=== PATIENT | male | born 1955 | race Caucasian/White ===

== ENCOUNTER 2025-03-29 10:53 | Observation (INO) | payer MEDICARE, SELFPAY ==
[2025-03-29] VITALS (11 sets, daily range): BP systolic 114–145; BP diastolic 74–108; PULSE 67–83; RESP 16–18; TEMP 36.6–36.9; O2SAT 91–98; BMI 37.3
--- NOTE | 2025-03-29 11:14 | ED.RN ---
pt. has been repeatedly yelling out room that he needs door opened and water. Pt. is on the phone yelling that he needs at IV. Pt.and were then educated again that he has not seen a dr. yet and that as soon as he sees a dr. and orders are placed they will be carried out. Pt. given water and this RN kept door open d/t claustrophobia. This RN told on phone that I will not be speaking to her as long as she is yelling.
--- NOTE | 2025-03-29 12:01 | ED.RN ---
this rn answers call light - pt is on phone with a female individual, female on the phone is being rude to this nurse demanding the pt has water and the door has to be left open or they will call 911 and have pt taken to [facility]. this nurse explains to pt that that will not work - our ambulance companies will not transfer pts to [place]. female on the phone is cursing at this nurse. this nurse gives pt urinal like he had requested and gave pt more water like he requested. female on phone still making verbal threats about calling 911 and calling police. this nurse makes sure pt bed lockec, bed rails up, lowest pt and call light in reach. this nurse steps out of room- pt hit call light again
--- NOTE | 2025-03-29 12:40 | RAD_ITS ---
PROCEDURE: CHEST 1 VIEW (PORTABLE) 03/29/2025 REASON FOR EXAM: CHEST PAIN TECHNIQUE: Frontal view of the chest. COMPARISON: None provided. RAD/Chest 1 View (Portable) IMPRESSION: Marked right hemidiaphragm elevation is noted. Examination limited by AP portable technique, body habitus, and patient motion. No acute pneumonic process is seen. No pleural effusion or pneumothorax is evident. The cardiomediastinal silhouette is within the normal range. No acute osseous change is seen. Reading Location: [place] [id number]
--- NOTE | 2025-03-29 12:42 | EKG12_ITS ---
Test Reason : Blood Pressure : */* mmHG Vent. Rate : 65 BPM Atrial Rate : 65 BPM P-R Int : 196 ms QRS Dur : 88 ms QT Int : 400 ms P-R-T Axes : 54 -6 41 degrees QTcB Int : 416 ms Normal sinus rhythm Minimal voltage criteria for LVH, may be normal variant ( R in aVL ) Borderline ECG Confirmed by Gómez Gates ([id number]), news copy editor LOLY RAY ([id number]) on 03/30/2025 10:20:24 AM Referred By: Confirmed By: Gómez Gates
[2025-03-29] MEDS: 0.9% Normal Saline (1000mL) 1,000 ML 999 ML IV (12:56)
[2025-03-29 13:14] LABS: Hematocrit 41.8 % (40-54); Hemoglobin 14.3 g/dL (13.0-16.5); Immature Granulocytes Count 0.030 X10^3/uL (0.0-0.0); Mean Corp Hgb Conc 34.2 g/dL (32-36); Mean Corpuscular Volume 87.4 fL (80-94); Mean Platelet Vol. 8.9 fl (6.2-12.0); NRBC Flagged by Analyzer 0 % (0-5); Platelet Count 402 K/mm3 (150-450); RBC Distribution Width CV 14.0 % (11.6-14.6); RBC Distribution Width SD 45.0 fl (35.1-43.9); Red Blood Count 4.78 M/mm3 (4.6-6.2); White Blood Count 10.8 K/mm3 (4.4-11.0)
[2025-03-29 13:29] LABS: Mucous, Urine 0 SEEN /hpf (<or=2+)
[2025-03-29 13:34] LABS: Color, Urine Yellow (Yellow); Glucose, Dipstick Normal (Normal); Ketone-Dipstick Negative (Negative); Leukocyte Esterase-Dipstick Negative /ul (Negative); Nitrite-Dipstick Negative (Negative); Occult Blood-Urine Negative /ul (Negative); Protein-Dipstick 30 mg/dl (Negative); Specific Gravity, Urine 1.015 (1.002-1.030); Urine Bilirubin Dipstick Negative (Negative)
[2025-03-29 13:39] LABS: Troponin T High Sensitivity 19 ng/L (<=22)
[2025-03-29 13:42] LABS: AST(SGOT) 14 U/L (<=37); Alanine Aminotransfer ALT/SGPT 19 U/L (<=46); Albumin, Serum 4.2 g/dL (3.4-4.8); Alkaline Phosphatase 77 U/L (40-129); Anion Gap 14 (5-15); BUN 18 mg/dL (4-19); BUN/Creat Ratio 19.3 RATIO (10-20); Calcium,Total 9.8 mg/dL (7.6-11.0); Carbon Dioxide 26.0 mmol/L (21.0-32.0); Chloride 97 mmol/L (98-108); Estimated Creatinine Clearance 126.35 ml/min (50-250); Globulin 3.3 g/dL (2.2-4.2); Glucose 153 mg/dL (70-99); Potassium 4.0 mmol/L (3.3-5.1)
[2025-03-29 13:52] LABS: Barbiturate Urine NEGATIVE (< 200 ng/mL); Benzodiazepine Urine NEGATIVE (< 200 ng/mL); PCP Urine NEGATIVE (< 25 ng/mL); THC Urine PRESUMPTIVE POSITIVE (< 50 ng/mL)
[2025-03-29 14:40] LABS: Red Blood Cells-Urine 0-5 SEEN /hpf (0-5); Squamous Epithelial Cells - UA 0-5 SEEN /hpf (0-5)
--- NOTE | 2025-03-29 15:07 | PCM.HP.STD ---
[facility] - General General Date of Admission: 03/29/25 Date of Service: 03/29/25 Chief Complaint: Intractable back pain HPI Narrative XANDER BENAVIDES, is a 69 M who presented to [facility] ED on 03/29/2025 with intractable back pain. Patient has complex past medical history. Has never been hospitalized here before. Reviewed [facility] records. In short, patient has history of chronic low back pain with multiple prior surgeries. He has followed with pain management and was on Dilaudid for many years. He was transitioned to p.o. oxycodone at some point and attempts were made to wean him off of opiates. However, patient had no reported pain relief with any other pain medications or injections and was adamant about remaining on p.o. oxycodone. It appears he was recently discharged from a [facility] pain management doctor a few months ago. He then established with a new PCP about a month ago. ED physician spoke on phone with patient's PCP. PCP noted that she was in the process of weaning the patient off his oxycodone over the past 2 weeks. Patient had been on oxycodone 15 mg up to 4 times daily. He was weaned slowly with oxycodone 15 mg 3 times daily for 1 week, then 15 mg 3 times daily for 1 week, then 50 mg 1 time daily for 1 week. Apparently the patient was taking it more frequently and that last week and ran out early, and the PCP agreed to give him more tablets to wean more slowly. However, patient again took these more frequently than prescribed so PCP refused to provide him with more oxycodone. He noted worsening pain and what appeared to be opiate withdrawal symptoms, so he came to the ED here today for further evaluation. On arrival to the ED he was normotensive and stable on room air at rest. He was reporting opiate withdrawal symptoms and was given a dose of oxycodone 15 mg. ED physician discussed patient's case with his PCP as above and discussed at length with the patient and his on their options. They were concerned about pain control for him going forward and asked for more oxycodone for him at home. ED physician noted that she would only give muscle relaxers and steroids, so they asked for him to be admitted for pain management. Hospitalist was then contacted for admission. I saw the patient at bedside in the ED. participated in the conversation over the phone. was very adamant that the patient's pain was not being properly managed now and had not been managed properly for years by many physicians. Patient apparently has an office appointment with spine surgery in the [place] area next Saturday, and she and the patient are concerned about what to do for his pain over the next week. I discussed with them that I can admit him to the hospital and have our pain management physician see him here, and they were agreeable to this. On my exam, patient appeared fairly comfortable, though he had just received a dose of oxycodone. Denied any other acute concerns at this time. [facility] Home Medications ?Medication ?Instructions ?Recorded ?Last Taken ?Type albuterol sulfate 90 mcg/actuation 2 inh inhalation Q8H PRN shortness 03/29/25 03/28/25 17:00 History aerosol inhaler (Ventolin HFA) of breath or wheezing allopurinol 300 mg tablet 300 mg PO DAILY gout pain 03/29/25 03/28/25 History atenolol 50 mg tablet 50 mg PO BID 03/29/25 03/28/25 History atorvastatin 10 mg tablet 10 mg PO DAILY 03/29/25 03/28/25 History duloxetine 60 mg capsule,delayed 60 mg PO BID 03/29/25 03/28/25 History release ergocalciferol (vitamin D2) 1,250 2,500 mcg PO QWEEK 03/29/25 03/22/25 History mcg (50,000 unit) capsule hydrochlorothiazide 25 mg tablet 25 mg PO DAILY 03/29/25 03/28/25 History lorazepam 0.5 mg tablet 0.25 mg PO BID anxiety 03/29/25 03/28/25 History losartan 100 mg tablet 100 mg PO DAILY 03/29/25 03/28/25 History meloxicam 15 mg tablet 15 mg PO DAILY 03/29/25 03/28/25 History oxycodone 15 mg tablet 15 mg PO DAILY 03/29/25 Unknown History risperidone 1 mg tablet 1 mg PO QHS 03/29/25 03/28/25 History tamsulosin 0.4 mg capsule 0.4 mg PO DAILY 03/29/25 03/28/25 History testosterone 2 pump topical DAILY 03/29/25 03/28/25 History tirzepatide 7.5 mg/0.5 mL 7.5 mg subcut QWEEK 03/29/25 03/20/25 History subcutaneous pen injector (Scarlett) trospium 20 mg tablet 20 mg PO Q12H overactive bladder 03/29/25 03/28/25 History Allergy/AdvReac Type Severity Reaction Status Date / Time povidone-iodine (From Allergy Rash Verified 03/29/25 10:55 Betadine) Social History Smoking Status: Never smoker ROS Constitutional Constitutional: Reports weakness; Denies chills, fatigue or fever(s) Cardiovascular Cardiovascular: Denies chest pain Respiratory/Chest Respiratory/Chest: Denies shortness of breath at rest Gastrointestinal Gastrointestinal: Reports nausea; Denies abdominal pain, constipation, diarrhea or vomiting Musculoskeletal Musculoskeletal: Reports back pain Neurologic Neurologic: Denies dizziness, focal weakness, headache(s), numbness or tingling Vital Signs Vital Signs Vital Signs: 03/29/25 10:56 03/29/25 11:54 03/29/25 12:00 Temperature 98.0 F Temperature Source Oral Pulse Rate 71 81 81 Respiratory Rate 18 Respiratory Effort Blood Pressure 139/74 H 120/105 H 120/105 H Blood Pressure Mean 95 110 110 Pulse Ox 94 95 95 Oxygen Delivery Method Room Air Room Air 03/29/25 13:00 03/29/25 13:07 03/29/25 14:00 Temperature Temperature Source Pulse Rate 70 67 Respiratory Rate 16 Respiratory Effort Normal Non-Labored Blood Pressure 130/108 H 120/78 Blood Pressure Mean 115 92 Pulse Ox 94 Oxygen Delivery Method Room Air 03/29/25 14:18 03/29/25 15:00 Temperature 98.0 F Temperature Source Pulse Rate 67 83 Respiratory Rate 16 Respiratory Effort Blood Pressure 120/78 114/87 H Blood Pressure Mean 92 96 Pulse Ox 94 91 Oxygen Delivery Method Room Air Weight Weight: 146.4 kg Body Mass Index (BMI) 37.3 Physical Exam Const alert, oriented x3 and no apparent distress Constitutional Narrative: Elderly male, class II obesity, mildly fatigued appearing, otherwise sitting back fairly comfortably in bed, conversing normally, in no acute distress. General Appearance: cooperative and comfortable HEENT normocephalic, head/scalp atraumatic, hearing grossly normal bilaterally, nasal mucous membranes and turbinates normal and moist oral mucous membranes Eyes PERRL, EOMs intact bilaterally and conjunctivae normal Neck full ROM Chest inspection of chest normal Resp normal respiratory effort, normal air movement, no use of accessory muscles and clear to auscultation bilaterally Cardio regular rate, regular rhythm, no murmurs and peripheral pulses 2+ throughout GI normal to inspection, nondistended, normoactive bowel sounds, soft to palpation, non-tender and non-distended Back/Spine Back/Spine Narrative: Mild tenderness to palpation in low back diffusely. Decreased range of motion noted. Extremity normal to inspection and no pedal edema Skin no rashes or lesions noted Psych mental status grossly normal Results Lab / Micro Data 03/29/25 12:37 03/29/25 12:37 Labs: Laboratory Results - last 24 hr 03/29/25 12:37: WBC 10.8, RBC 4.78, Hgb 14.3, Hct 41.8, MCV 87.4, MCH 29.9, MCHC 34.2, RDW Std Deviation 45.0 H, RDW Coeff of Judie 14.0, Plt Count 402, MPV 8.9, Immature Gran % (Auto) 0.300, Neut % (Auto) 67.6, Lymph % (Auto) 24.3, [place] % (Auto) 4.4, Eos % (Auto) 2.8, Baso % (Auto) 0.6, Absolute Neuts (auto) 7.3, Absolute Lymphs (auto) 2.63, Nucleated RBC % 0, Sodium 137, Potassium 4.0, Chloride 97 L, Carbon Dioxide 26.0, Anion Gap 14, BUN 18, Creatinine 0.91, Estim Creat Clear Calc 126.35, Est GFR (MDRD) Non-Af 92, BUN/Creatinine Ratio 19.3, Glucose 153 H, Calcium 9.8, Total Bilirubin 0.38, AST 14, ALT 19, Alkaline Phosphatase 77, Troponin T High Sens 19, Total Protein 7.4, Albumin 4.2, Globulin 3.3, Albumin/Globulin Ratio 1.3 03/29/25 13:24: Urine Color Yellow, Urine Clarity Clear, Urine pH 6.0, Ur Specific [place] 1.015, Urine Protein 30 H, Urine Glucose (UA) Normal, Urine Ketones Negative, Urine Occult Blood Negative, Urine Nitrite Negative, Urine Bilirubin Negative, Urine Urobilinogen Normal, Ur Leukocyte Esterase Negative, Urine RBC 0-5 SEEN, Urine WBC 0-5 SEEN, Ur Squamous Epith Cells 0-5 SEEN, Urine Bacteria 0 SEEN, Urine Mucus 0 SEEN, Urine Opiates Screen NEGATIVE, U Buprenorphine Qual NEGATIVE, Ur Oxycodone Screen PRESUMPTIVE POSITIVE, Urine Methadone Screen NEGATIVE, Urine Fentanyl Screen NEGATIVE, Ur Barbiturates Screen NEGATIVE, Ur Phencyclidine Scrn NEGATIVE, Ur Amphetamines Screen NEGATIVE, U Benzodiazepines Scrn NEGATIVE, Urine Cocaine Screen NEGATIVE, U Cannabinoids Screen PRESUMPTIVE POSITIVE Imaging Radiology Impression Chest X-Ray 03/29/25 12:40 IMPRESSION: Marked right hemidiaphragm elevation is noted. Examination limited by AP portable technique, body habitus, and patient motion. No acute pneumonic process is seen. No pleural effusion or pneumothorax is evident. The cardiomediastinal silhouette is within the normal range. No acute osseous change is seen. Reading Location: [place] [address] Assessment & Plan Assessment/Plan (1) Chronic back pain: (2) Opioid dependence: (3) Intractable low back pain: PLAN: Plan Patient is a 69-year-old male who presented to [facility] ED on 03/29/2025 with intractable low back pain. 1. Intractable low back pain in setting of chronic low back pain with opioid dependence ? Admit under observation status to [facility]. Pain management consulted. PT/OT/case management consulted. Complex history, see HPI for further details. Reviewed most recent office note from Dr. Jeffers with [facility] interventional pain management from 11/12. Patient signed a pain contract that day, and plan at that time was to continue OxyContin 10 mg every 12 hours and oxycodone IR 15 mg every 6 hours as needed. Was apparently dismissed by this provider for an unclear reason. He then established with a new PCP who discontinued his OxyContin and attempted to taper him off the oxycodone. Patient now reports worsening pain control as well as symptoms consistent with opiate withdrawal. Will initiate oxycodone 10 mg every 6 hours as needed for now. Appreciate pain management recommendations. Chronic medical conditions: ? Class II obesity: BMI 37 on admit. Complicates hospital course and care. ? Anxiety/depression: Continue home duloxetine, low-dose Ativan twice daily as needed and Risperdal at night. ? Hypertension/hyperlipidemia: Mildly hypertensive to the 140s systolic on admit. Continue home atenolol, hydrochlorothiazide, losartan, and atorvastatin. ? BPH with obstructive symptoms: Continue home Flomax. ? Overactive bladder: Continue home trospium. ? History of gout: Continue home allopurinol. DVT prophylaxis: Lovenox CODE STATUS: Full code, verified Expected disposition: Home, TBD Total clinical time spent by myself addressing the patient's medical issues, reviewing all the data, and collaborating with patient's care team: 85 minutes. Charges/Coding Visit Charges Inpatient E&M: 81127 Init Hosp L3
--- NOTE | 2025-03-29 15:25 | EX.ED.DYSGE1 ---
HPI History of Present Illness Chief Complaint: General Illness Informant: patient Narrative Narrative: Patient is a 69-year-old male with history of neuropathy, chronic pain, mitral valve prolapse, hypertension and debility presenting with concern for opioid withdrawl. Patient states that he recently lost his pain management doctor and had to switch primary care doctors. His current primary care doctor, Dr. Brady, has been weaning him off of his oxycodone and most recently he was prescribed his oxycodone 15 mg IR once a day for 10 days on 03/23. Patient states he only had 1/2 pill left and took that yesterday. He is presenting with withdrawal-like symptoms including nausea, chills, freezing and shaking. He is concerned that is affecting his heart and states that he has had variable heart rates because of the severity of the withdrawal symptoms. He denies any new injury or trauma. He states he has appointment to see a spinal surgeon, Dr. Currie, this coming Saturday. He has appointment to see a new pain management doctor through [facility], Dr. Vick, in May 18. Does not know what else to do so came to the emergency room. Denies any acute numbness or tingling. No acute symptoms at this time except for of the shaking chills and nausea. [facility] Home Medications ?Medication ?Instructions ?Recorded ?Last Taken ?Type allopurinol 300 mg tablet 300 mg PO DAILY gout pain 03/29/25 03/28/25 History atenolol 50 mg tablet 50 mg PO BID 03/29/25 03/28/25 History atorvastatin 10 mg tablet 10 mg PO DAILY 03/29/25 03/28/25 History duloxetine 60 mg capsule,delayed 60 mg PO BID 03/29/25 03/28/25 History release ergocalciferol (vitamin D2) 1,250 2,500 mcg PO QWEEK 03/29/25 03/22/25 History mcg (50,000 unit) capsule hydrochlorothiazide 25 mg tablet 25 mg PO DAILY 03/29/25 03/28/25 History lorazepam 0.5 mg tablet 0.25 mg PO BID anxiety 03/29/25 03/28/25 History losartan 100 mg tablet 100 mg PO DAILY 03/29/25 03/28/25 History meloxicam 15 mg tablet 15 mg PO DAILY 03/29/25 03/28/25 History oxycodone 15 mg tablet 15 mg PO DAILY 03/29/25 Unknown History risperidone 1 mg tablet 1 mg PO QHS 03/29/25 03/28/25 History tamsulosin 0.4 mg capsule 0.4 mg PO DAILY 03/29/25 03/28/25 History testosterone 2 pump topical DAILY 03/29/25 03/28/25 History tirzepatide 7.5 mg/0.5 mL 7.5 mg subcut QWEEK 03/29/25 03/20/25 History subcutaneous pen injector (Mounpraveenaro) trospium 20 mg tablet 20 mg PO Q12H overactive bladder 03/29/25 03/28/25 History Allergy/AdvReac Type Severity Reaction Status Date / Time povidone-iodine (From Allergy Rash Verified 03/29/25 10:55 Betadine) Social History Smoking Status: Never smoker ROS ROS ED Constitutional Constitutional ED: Reports chills and sweats; Denies fever(s) Eyes Eyes: Denies change in vision Cardiovascular Cardiovascular: Reports palpitations; Denies chest pain Respiratory/Chest Respiratory/Chest: Denies cough or dyspnea Gastrointestinal Gastrointestinal: Reports nausea; Denies abdominal pain or vomiting Musculoskeletal Musculoskeletal: Reports arthralgias and back pain Integumentary Denies rash Neurologic Neurologic: Reports paresthesias RLE and LLE; Denies weakness Psychiatric Psychiatric: Reports anxiety Hematologic/Lymphatic Hematologic/Lymphatic: Denies easy bleeding or easy bruising EXAM Physical Exam Const Vital Signs: 03/29/25 10:56 03/29/25 11:54 03/29/25 12:00 Temperature 98.0 F Temperature Source Oral Pulse Rate 71 81 81 Respiratory Rate 18 Respiratory Effort Blood Pressure 139/74 H 120/105 H 120/105 H Blood Pressure Mean 95 110 110 Pulse Ox 94 95 95 Oxygen Delivery Method Room Air Room Air 03/29/25 13:00 03/29/25 13:07 03/29/25 14:00 Temperature Temperature Source Pulse Rate 70 67 Respiratory Rate 16 Respiratory Effort Normal Non-Labored Blood Pressure 130/108 H 120/78 Blood Pressure Mean 115 92 Pulse Ox 94 Oxygen Delivery Method Room Air 03/29/25 14:18 03/29/25 15:00 Temperature 98.0 F Temperature Source Pulse Rate 67 83 Respiratory Rate 16 Respiratory Effort Blood Pressure 120/78 114/87 H Blood Pressure Mean 92 96 Pulse Ox 94 91 Oxygen Delivery Method Room Air Positive well nourished, well developed and obese General Appearance ED: well developed and NAD Nutritional Appearance: obese HEENT Reports moist mucous membranes Eyes PERRL Neck supple Chest Wall inspection of chest normal and palpation of chest normal Resp normal respiratory effort Cardio regular rate and regular rhythm GI normal to inspection, nondistended, normoactive bowel sounds and non-tender Extremity normal to inspection Neuro oriented x3 Sensorium / Orientation: alert Motor Exam: general weakness Psych Attitude: agitated Skin no rashes or lesions noted MDM MDM MDM Narrative Medical decision making narrative: Patient is evaluated for opioid withdrawal symptoms and reports variable heart rate at home associated with his opioid withdrawal symptoms. His PCP has been weaning him off of oxycodone however he ran out prematurely. Patient has an extensive history of opioid dependency and is previously been on Dilaudid as well as methadone. He has left multiple pain management practices. He has also been dismissed from multiple PCP practices. Patient initially given 1 dose of his oxycodone 15 mg in the ER for his acute withdrawals I do see that he has a regular fill history on his [facility] report and tell I can get more secondary information. I spoke with his primary care doctor who states that the patient and his have a history of badgering in the office for pain medication and they were discharged from the last practice for this behavior. His current practice is having difficulty with them as well. She confirms that she is trying to wean the patient off of his oxycodone and did recommend detox if he is having too much difficulty with his withdrawal symptoms. Initially spoke with the patient who is initially interested in admission for detox. Counseled that this would get him started on Subutex however this would not help with pain management. Spoke with hospitalist who had extensive conversation with the patient as well. At this time is unlike the patient is not interested in detoxing as he really does not want to stop taking oxycodone and is really here for pain management. Patient will be admitted for pain management standpoint/intractable pain and pain management will see him on consult. Medically patient does not have any signs of infection with no leukocytosis and does not have any arrhythmia in the emergency room. Lab Data Attestation: I reviewed the patient's lab results. Labs: Laboratory Results - last 24 hr 09/08/25 09/08/25 12:37 13:24 WBC 10.8 RBC 4.78 Hgb 14.3 Hct 41.8 MCV 87.4 MCH 29.9 MCHC 34.2 RDW Std Deviation 45.0 H RDW Coeff of Judie 14.0 Plt Count 402 MPV 8.9 Immature Gran % (Auto) 0.300 Neut % (Auto) 67.6 Lymph % (Auto) 24.3 [place] % (Auto) 4.4 Eos % (Auto) 2.8 Baso % (Auto) 0.6 Absolute Neuts (auto) 7.3 Absolute Lymphs (auto) 2.63 Nucleated RBC % 0 Sodium 137 Potassium 4.0 Chloride 97 L Carbon Dioxide 26.0 Anion Gap 14 BUN 18 Creatinine 0.91 Estim Creat Clear Calc 126.35 Est GFR (MDRD) Non-Af 92 BUN/Creatinine Ratio 19.3 Glucose 153 H Calcium 9.8 Total Bilirubin 0.38 AST 14 ALT 19 Alkaline Phosphatase 77 Troponin T High Sens 19 Total Protein 7.4 Albumin 4.2 Globulin 3.3 Albumin/Globulin Ratio 1.3 Urine Color Yellow Urine Clarity Clear Urine pH 6.0 Ur Specific [place] 1.015 Urine Protein 30 H Urine Glucose (UA) Normal Urine Ketones Negative Urine Occult Blood Negative Urine Nitrite Negative Urine Bilirubin Negative Urine Urobilinogen Normal Ur Leukocyte Esterase Negative Urine RBC 0-5 SEEN Urine WBC 0-5 SEEN Ur Squamous Epith Cells 0-5 SEEN Urine Bacteria 0 SEEN Urine Mucus 0 SEEN Urine Opiates Screen NEGATIVE U Buprenorphine Qual NEGATIVE Ur Oxycodone Screen PRESUMPTIVE POSITIVE Urine Methadone Screen NEGATIVE Urine Fentanyl Screen NEGATIVE Ur Barbiturates Screen NEGATIVE Ur Phencyclidine Scrn NEGATIVE Ur Amphetamines Screen NEGATIVE U Benzodiazepines Scrn NEGATIVE Urine Cocaine Screen NEGATIVE U Cannabinoids Screen PRESUMPTIVE POSITIVE Radiography Diagnostic Testing: Clinical Impression(s) from Imaging Studies Chest X-Ray 03/29/25 12:40 IMPRESSION: Marked right hemidiaphragm elevation is noted. Examination limited by AP portable technique, body habitus, and patient motion. No acute pneumonic process is seen. No pleural effusion or pneumothorax is evident. The cardiomediastinal silhouette is within the normal range. No acute osseous change is seen. Reading Location: [facility] Rhythm Strip Rhythm Strip: Sinus Rhythm Rate: 65 Ectopy: None EKG Initial EKG: Attestation: I personally reviewed and interpreted this EKG as follows: Interpretation: Sinus Rhythm Comments: Normal sinus rhythm rate of 65 beats per minutes Normal axis Normal intervals Normal ST segments Minimal voltage criteria for LVH Management Discussion w/another healthcare provider: Hospitalist and PCP Discharge Plan Triage Chief Complaint: General Illness ED Provider: Melvina Mar Dx/Rx/DC Orders Clinical Impression: Chronic back pain, Opioid dependence Prescriptions: No Action atorvastatin 10 mg tablet 10 mg PO DAILY meloxicam 15 mg tablet 15 mg PO DAILY oxycodone 15 mg tablet 15 mg PO DAILY Rx Instructions: pt states isn't taking because pcp isn't giving him any more lorazepam 0.5 mg tablet 0.25 mg PO BID Patient Comments: rx instructions are 1/2t bid, pt states he takes 1am and 2pm tamsulosin 0.4 mg capsule 0.4 mg PO DAILY hydrochlorothiazide 25 mg tablet 25 mg PO DAILY ergocalciferol (vitamin D2) 1,250 mcg (50,000 unit) capsule 2,500 mcg PO QWEEK losartan 100 mg tablet 100 mg PO DAILY risperidone 1 mg tablet 1 mg PO QHS atenolol 50 mg tablet 50 mg PO BID duloxetine 60 mg capsule,delayed release(DR/EC) 60 mg PO BID testosterone 20.25 mg/1.25 gram (1.62 %) gel in metered-dose pump 2 pump topical DAILY Mounjaro 7.5 mg/0.5 mL pen injector 7.5 mg subcut QWEEK trospium 20 mg tablet 20 mg PO Q12H allopurinol 300 mg tablet 300 mg PO DAILY Primary Care Provider: Vivian Brady Referrals: Vivian Brady DO [Primary Care Provider] - Print Language: Telugu Disposition Disposition: Acute Care Hospital [facility]
[2025-03-29 15:32] LABS: Troponin T High Sens 2 HR 12 ng/L (<=22)
[2025-03-29 15:36] LABS: Alcohol, Blood (Medical)-Serum < 10.1 mg/dL (<=10.0)
--- NOTE | 2025-03-29 16:17 | ED.RN ---
pt calls department yelling at this nurse. asking why he is not up stairs yet. and why he has not been able to eat yet today. was talking so fast and much did not allow this nurse to respond. she then hung up.
--- NOTE | 2025-03-29 16:30 | ED.RN ---
Pt heard yelling help, this RN went into room to assess pt needs. Pt states he dropped his call light. This RN secured call light to bed rail. This RN asked if pt had any other needs at this time. Pt states I'm too tall for this bed, they have to move me! I was told I'm being admitted! This RN states she's not the pt's nurse but would check the status of his admission. Pt educated on the need to wait for his inpatient room to be cleaned before he can be moved upstairs and that they are currently cleaning the room. Pt states well if they're not going to do anything I should just leave! This RN again reiterates that the hospitalist has seen him and orders are in for inpatient treatment that we are just waiting for the room to be done being cleaned. This RN offered to reposition pt for comfort and assisted pt up in the bed. Pt denies further needs at this time.
--- NOTE | 2025-03-29 16:56 | ED.RN ---
Late entry....1235 Pt is yelling at this nurse. Pts is on the phone. had called prior to this nurse going to the room to tell me to tell the physician that pt needs pain meds and IV fluids. I explained to the that the physician was in with a trauma and will be in the room as soon as she can. stated that the dr had also told her that. Pt continues to ask for pain meds. This nurse was starting IV and getting blood work. The again repeated that he needs his pain meds.
--- NOTE | 2025-03-29 17:05 | ED.RN ---
Pts called again and wanted to speak to Dr Morales. was made aware that everyone knows that he is to be given pain medication directed. wanted to know what the orders were for. I told her per Dr Pelletier orders he will be given oxycodone 10mg q6hr prn and meloxicam daily. She said thank you and hung up.
--- NOTE | 2025-03-29 17:16 | CM.ED ---
Social Work SW entered patients room, introduced self and explained role in the hospital. SW explained that the visit was just for a check to see if there was anything that SW could help with as he has been heard yelling during his admission. Patient stated that he was in pain and that he was withdrawing from multiple years of using pain medications. Patient offered emotional support, patient stated he just wanted pain medications and more water. Patient given more water after checking with nurse. No further needs identified at this time. Beth Aguilar, JUNIOR ESTIMATOR, ENVIRONMENTAL ENGINEER SCIENTIST
[2025-03-29 18:12] LABS: Troponin T High Sens 4 HR 16 ng/L (<=22)
--- NOTE | 2025-03-29 20:44 | PCM.HOSP.N ---
Hospitalist Note Pt found using home albuterol MDI in home; nrsg added medication to reconciled home list. Continued albuterol INH PRN as directed per home orders recorded.
[2025-03-29] MEDS: MENTHOL 226.8 GM JAR 1 APPLIC TOPICAL (23:01)
[2025-03-30 03:54] VITALS: BP 142/68; PULSE 65; RESP 18; TEMP 36.5; O2SAT 92
[2025-03-30 08:30] VITALS: BP 111/62; PULSE 67; RESP 18; TEMP 37; O2SAT 91
[2025-03-30] MEDS: MENTHOL 226.8 GM JAR 1 APPLIC TOPICAL ×2 (08:33→12:57)
--- NOTE | 2025-03-30 10:39 | PN.HOSP_ITS ---
Reason for Visit Chief Complaint: Intractable back pain Objective Data Objective Data Vital Signs: Vital Signs Temp Pulse Resp BP Pulse Ox O2 Del Method 98.6 F 67 18 111/62 91 Room Air 03/30/25 08:30 03/30/25 08:30 03/30/25 08:30 03/30/25 08:30 03/30/25 08:30 03/30/25 08:30 Oxygen Delivery Method Room Air Weight: 322 lb 12.108 oz Body Mass Index (BMI) 37.3 Intake & Output: Intake and Output for Last 24 Hours 03/28/25 03/29/25 03/30/25 23:59 23:59 23:59 Intake Total 1400 / 2400 1400 / 1400 Output Total 800 / 800 Balance 1400 / 1800 600 / 600 Lab / Micro Data 03/29/25 12:37 03/29/25 12:37 Labs: Laboratory Results - last 24 hr 03/29/25 12:37: WBC 10.8, RBC 4.78, Hgb 14.3, Hct 41.8, MCV 87.4, MCH 29.9, MCHC 34.2, RDW Std Deviation 45.0 H, RDW Coeff of Judie 14.0, Plt Count 402, MPV 8.9, Immature Gran % (Auto) 0.300, Neut % (Auto) 67.6, Lymph % (Auto) 24.3, Bay % (Auto) 4.4, Eos % (Auto) 2.8, Baso % (Auto) 0.6, Absolute Neuts (auto) 7.3, Absolute Lymphs (auto) 2.63, Nucleated RBC % 0, Sodium 137, Potassium 4.0, C hloride 97 L, Carbon Dioxide 26.0, Anion Gap 14, BUN 18, Creatinine 0.91, Estim Creat Clear Calc 126.35, Est GFR (MDRD) Non-Af 92, BUN/Creatinine Ratio 19.3, G lucose 153 H, Calcium 9.8, Total Bilirubin 0.38, AST 14, ALT 19, Alkaline Phosphatase 77, Troponin T High Sens 19, Total Protein 7.4, Albumin 4.2, Globulin 3.3, Albumin/Globulin Ratio 1.3 03/29/25 13:24: Urine Color Yellow, Urine Clarity Clear, Urine pH 6.0, Ur Specific [place] 1.015, Urine Protein 30 H, Urine Glucose (UA) Normal, Urine Ketones Negative, Urine Occult Blood Negative, Urine Nitrite Negative, Urine Bilirubin Negative, Urine Urobilinogen Normal, Ur Leukocyte Esterase Negative, Urine RBC 0-5 SEEN, Urine WBC 0-5 SEEN, Ur Squamous Epith Cells 0-5 SEEN, Urine Bacteria 0 SEEN, Urine Mucus 0 SEEN, Urine Opiates Screen NEGATIVE, U Buprenorphine Qual NEGATIVE, Ur Oxycodone Screen PRESUMPTIVE POSITIVE, Urine Methadone Screen NEGATIVE, Urine Fentanyl Screen NEGATIVE, Ur Barbiturates Screen NEGATIVE, Ur Phencyclidine Scrn NEGATIVE, Ur Amphetamines Screen NEGATIVE, U Benzodiazepines Scrn NEGATIVE, Urine Cocaine Screen NEGATIVE, U Cannabinoids Screen PRESUMPTIVE POSITIVE 03/29/25 14:13: Ethyl Alcohol < 10.1 03/29/25 14:37: Troponin T Hi Sens 2 Hr 12 03/29/25 16:55: Troponin T Hi Sens 4Hr 16 Radiography Diagnostic Testing: Radiology Impression Chest X-Ray 03/29/25 12:40 IMPRESSION: Marked right hemidiaphragm elevation is noted. Examination limited by AP portable technique, body habitus, and patient motion. No acute pneumonic process is seen. No pleural effusion or pneumothorax is evident. The cardiomediastinal silhouette is within the normal range. No acute osseous change is seen. Reading Location: [place] [address] Rhythm Strip Rhythm Strip: Sinus Rhythm Rate: 65 Ectopy: None Assessment & Plan Assessment/Plan (1) Chronic back pain: (2) Opioid dependence: (3) Intractable low back pain: PLAN: Plan Patient is a 69-year-old male who presented to [facility] ED on 03/29/2025 with intractable low back pain. 1. Intractable low back pain in setting of chronic low back pain with opioid dependence after recent tapering of oxycodone IR ? Admit under observation status to [facility]. Pain management consulted. PT/OT/case management consulted. Complex history. From H&P's it seems patient has been on OxyContin 10 mg every 12 hourly and oxycodone IR 50 mg every 6 hours as needed as per recent pain contract signed outpatient. Patient has been dismissed by multiple providers. He recently established with new PCP who attempted to taper off OxyContin IR and discontinued OxyContin. Pain management consulted. Chronic medical conditions: ? Class II obesity: BMI 37 on admit. Complicates hospital course and care. ? Anxiety/depression: Continue home duloxetine, low-dose Ativan twice daily as needed and Risperdal at night. ? Hypertension/hyperlipidemia: Mildly hypertensive to the 140s systolic on admit. Continue home atenolol, hydrochlorothiazide, losartan, and atorvastatin. ? BPH with obstructive symptoms: Continue home Flomax. ? Overactive bladder: Continue home trospium. ? History of gout: Continue home allopurinol. DVT prophylaxis: Lovenox CODE STATUS: Full code, verified Expected disposition: Home, TBD Charges/Coding Visit Charges Inpatient E&M: 09428 Subs Hosp L2
[2025-03-30 11:12] VITALS: O2SAT 91
--- NOTE | 2025-03-30 14:19 | CASEMGMT ---
MCGRAW Met with patient to complete MCGRAW form. MCGRAW form and its content were verbally explained and patient's questions were answered to the best of my ability.? Patient voiced understanding and signed MCGRAW form.? Patient provided a copy of signed MCGRAW form and original placed in patient's chart.? Patient had no further questions. Melly Ren, Discharge Planning Asst
--- NOTE | 2025-03-30 14:37 | CASEMGMT ---
Addendum entered by Maya Carrera 03/30/25 16:02: MERVAT PRIETO into pt room, pt at bedside as well as nurse and DIRECTIONAL DRILL OPERATOR. Pt states he and his have chosen 1. [facility] 2. [facility] 3. [facility]. DC certified medical technician assistant to send referral. Original Note: Spoke with therapy who state pt is unsafe to return home but pt has an appt tomorrow with spine surgery that he does not want to miss. Reviewed therapy notes. MERVAT PRIETO into pt room, pt lying in bed in no distress. Discussed with pt how he felt he did with therapy, pt states it did not go well. Discussed recommendations and pt states he is open to SNF. Pt aware that this is a facility for therapy that he would stay at. Pt states he can do so as his changed his spine surgery appt to Saturday. Pt aware that dc certified medical technician assistant will provide a list and requested he give his top 3 preferences. Pt verbalized understanding and denies further needs at this time.
[2025-03-30 14:55] VITALS: BP 103/65; PULSE 81; RESP 18; TEMP 36.9; O2SAT 91
--- NOTE | 2025-03-30 15:06 | CASEMGMT ---
Discharge Planning A list of?SNF providers including quality and resource use data and consistent with the patient's preferred geographic region, medical needs, and insurance network was created in [facility] Guide.? This list was provided to the patient. Melly Ren, Discharge Planning Asst.
--- NOTE | 2025-03-30 16:15 | CASEMGMT ---
Discharge Planning Referral sent to [facility]. Melly Ren DC Planning Asst.
[2025-03-30 19:47] VITALS: BP 117/63; PULSE 74; RESP 18; TEMP 36.8; O2SAT 93
--- NOTE | 2025-03-31 00:18 | NURSING ---
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 They were unhappy about it and I told them I would pass it along in the am so the hospitalist can address it.
[2025-03-31 02:38] VITALS: BP 130/60; PULSE 65; RESP 18; TEMP 36.4; O2SAT 92
--- NOTE | 2025-03-31 08:00 | CASEMGMT ---
[facility] has accepted and will submit for precert. SW updated. Melly Ren, Discharge Planning Asst
[2025-03-31 08:45] VITALS: BP 123/80; PULSE 68; RESP 18; TEMP 36.9; O2SAT 95
--- NOTE | 2025-03-31 09:14 | TREXTCAR_ITS ---
Diet Diet Order/Speech Therapy: INPATIENT Hospital Diet / Speech Therapy Order(s) 03/29/25 17:16 Diet: Cardiac - Heart Healthy Food consistency:: Regular Liquid Consistency:: Regular/Thin Routine Orders/Code Status Suppository Type: Dulcolax 10mg Suppository Frequency: Daily PRN DC O2, CPAP, BIPAP needs Home O2 Discharge instructions: No Therapies Extremity Affected:: Bilateral Lower Physical Therapy: Eval and Treat Occupational Therapy: Eval and Treat Speech Therapy: Eval and Treat Problem/Diagnosis (1) Chronic back pain: Status: Chronic Code(s): M54.9 - Dorsalgia, unspecified; G89.29 - Other chronic pain (2) Opioid dependence: Status: Acute Code(s): F11.20 - Opioid dependence, uncomplicated (3) Intractable low back pain: Status: Acute Code(s): M54.59 - Other low back pain Plan Patient is a 69-year-old male who presented to [facility] ED on 03/29/2025 with intractable low back pain. 1. Intractable low back pain in setting of chronic low back pain with opioid dependence after recent tapering of oxycodone IR ? Admit under observation status to [facility]. Pain management consulted. PT/OT/case management consulted. Complex history. From H&P's it seems patient has been on OxyContin 10 mg every 12 hourly and oxycodone IR 50 mg every 6 hours as needed as per recent pain contract signed outpatient. Patient has been dismissed by multiple providers. He recently established with new PCP who attempted to taper off OxyContin IR and discontinued OxyContin. Pain management consulted. Chronic medical conditions: ? Class II obesity: BMI 37 on admit. Complicates hospital course and care. ? Anxiety/depression: Continue home duloxetine, low-dose Ativan twice daily as needed and Risperdal at night. ? Hypertension/hyperlipidemia: Mildly hypertensive to the 140s systolic on admit. Continue home atenolol, hydrochlorothiazide, losartan, and atorvastatin. ? BPH with obstructive symptoms: Continue home Flomax. ? Overactive bladder: Continue home trospium. ? History of gout: Continue home allopurinol. DVT prophylaxis: Lovenox CODE STATUS: Full code, verified Expected disposition: Home, TBD Allergies/Procedures Done in Hospital Allergies povidone-iodine (From Betadine) Allergy (Verified 03/29/25 10:55) Rash Type of Care/Length of Stay Estimated LOS: Convalescent Care Less Than 30 days Type of Care Needed: Skilled Rehab Potential: Good Prognosis: Good Additional Orders/Day of Discharge Day of Discharge: 03/31/25 Dietary and Speech Recommendations Dietitian Recommendations/Changes: Will continue liberalized regular diet with consistency/texture as per IT CONSULTING MANAGER. Will continue 120mL ensure plus HP 4 times per day w/ medpass. Monitor blood glucose level and restrict dietary carbohydrate as needed. Trend weights closely and adjust ONS as needed to optimize nutrition and prevent energy/pro depletion. Discharge Plan Admission Admit Date/Time: 03/29/25 15:07 Primary Reason for Your Visit: Intractable low back pain Attending Provider: Jorge Amador Primary Care Provider: Vivian Brady Consulting Providers: Abimbola Pascual; Orville Birmingham Discharge Orders/Prescriptions Prescriptions: New oxycodone 5 mg Tablet 5 mg PO Q6H PRN PRN (Reason: Pain Score 6-10) 3 Days Qty: 7 0RF pantoprazole 40 mg Tablet,Delayed Release (Dr/Ec) 40 mg PO DAILY 30 Days Qty: 30 0RF Continued atorvastatin 10 mg tablet 10 mg PO DAILY meloxicam 15 mg tablet 15 mg PO DAILY lorazepam 0.5 mg tablet 0.25 mg PO BID Patient Comments: rx instructions are 1/2t bid, pt states he takes 1am and 2pm tamsulosin 0.4 mg capsule 0.4 mg PO DAILY hydrochlorothiazide 25 mg tablet 25 mg PO DAILY ergocalciferol (vitamin D2) 1,250 mcg (50,000 unit) capsule 2,500 mcg PO QWEEK losartan 100 mg tablet 100 mg PO DAILY risperidone 1 mg tablet 1 mg PO QHS atenolol 50 mg tablet 50 mg PO BID duloxetine 60 mg capsule,delayed release(DR/EC) 60 mg PO BID testosterone 20.25 mg/1.25 gram (1.62 %) gel in metered-dose pump 2 pump topical DAILY Mounjaro 7.5 mg/0.5 mL pen injector 7.5 mg subcut QWEEK trospium 20 mg tablet 20 mg PO Q12H allopurinol 300 mg tablet 300 mg PO DAILY albuterol sulfate [Ventolin HFA] 90 mcg/actuation HFA aerosol inhaler 2 inh inhalation Q8H PRN (Reason: shortness of breath or wheezing) Discontinued oxycodone 15 mg tablet 15 mg PO DAILY Rx Instructions: pt states isn't taking because pcp isn't giving him any more Referrals / Follow Up: Abimbola Pascual MD [Med Staff - Active Staff] - Within 1 Week Vivian Brady DO [Primary Care Provider] - Within 2 Weeks Disposition Disposition (needs filled in before D/C Order can be placed): Nursing Home Facility
--- NOTE | 2025-03-31 09:15 | CASEMGMT ---
[facility] obtained auth to admit. MERVAT CM updated. Melly Ren DC Planning Asst.
--- NOTE | 2025-03-31 09:19 | DS.PCM_ITS ---
Providers Date of Admission: 03/29/25 Date of Discharge: 03/31/25 Primary Care Physician: Dr. Vivian Brady, Consultations 03/29/25 17:16 Consult: Pain Management Routine Consulting Provider: Abimbola Pascual Reason for Consult: intractable back pain EMERGENT Consult: No MD Notified: Yes Date Notified: 03/29/25 Time Notified: 17:28 Method of Notification: Answering Service Reason For Visit: withdraw, INTRACTABLE BACK PAIN Diagnosis Discharge Diagnosis (1) Chronic back pain: Status: Chronic Code(s): M54.9 - Dorsalgia, unspecified; G89.29 - Other chronic pain (2) Opioid dependence: Status: Acute Code(s): F11.20 - Opioid dependence, uncomplicated (3) Intractable low back pain: Status: Acute Code(s): M54.59 - Other low back pain Plan Patient is a 69-year-old male who presented to [facility] ED on 03/29/2025 with intractable low back pain. 1. Intractable low back pain in setting of chronic low back pain with opioid dependence after recent tapering of oxycodone IR ? Admit under observation status to [facility]. Pain management consulted. PT/OT/case management consulted. Complex history. From H&P's it seems patient has been on OxyContin 10 mg every 12 hourly and oxycodone IR 50 mg every 6 hours as needed as per recent pain contract signed outpatient. Patient has been dismissed by multiple providers. He recently established with new PCP who attempted to taper off OxyContin IR and discontinued OxyContin. Pain management consulted. 03/31: Had detailed discussion with the patient's over the phone in patient room in presence of charge nurse, Nirmala. She was very upset that Oxycodone was abruptly discontinued by PCP marianna trejo. Patient states that he has been on oxycodone 15 mg which is a good dose found over many years and his pain is controlled on that. In the past he has seen pain management Dr. Reynolds and was advised pain pump, local nerve procedures but patient does not agree. He wants only oxycodone 15 mg tablet therefore, 3 tablets of oxycodone 15 mg daily as needed only for severe pain prescribed. Patient is being discharged home. Patient on baseline health, no significant change from yesterday. Chronic medical conditions: ? Class II obesity: BMI 37 on admit. Complicates hospital course and care. ? Anxiety/depression: Continue home duloxetine, low-dose Ativan twice daily as needed and Risperdal at night. ? Hypertension/hyperlipidemia: Mildly hypertensive to the 140s systolic on admit. Continue home atenolol, hydrochlorothiazide, losartan, and atorvastatin. ? BPH with obstructive symptoms: Continue home Flomax. ? Overactive bladder: Continue home trospium. ? History of gout: Continue home allopurinol. DVT prophylaxis: Lovenox CODE STATUS: Full code, verified Expected disposition: Home, TBD Medications at Discharge Home Medications albuterol sulfate 90 mcg/actuation aerosol inhaler (Ventolin HFA) 2 inh inhalation Q8H PRN shortness of breath or wheezing 03/29/25 allopurinol 300 mg tablet 300 mg PO DAILY gout pain 03/29/25 atenolol 50 mg tablet 50 mg PO BID 03/29/25 atorvastatin 10 mg tablet 10 mg PO DAILY 03/29/25 duloxetine 60 mg capsule,delayed release 60 mg PO BID 03/29/25 ergocalciferol (vitamin D2) 1,250 mcg (50,000 unit) capsule 2,500 mcg PO QWEEK 03/29/25 hydrochlorothiazide 25 mg tablet 25 mg PO DAILY 03/29/25 lorazepam 0.5 mg tablet 0.25 mg PO BID anxiety 03/29/25 losartan 100 mg tablet 100 mg PO DAILY 03/29/25 meloxicam 15 mg tablet 15 mg PO DAILY 03/29/25 risperidone 1 mg tablet 1 mg PO QHS 03/29/25 tamsulosin 0.4 mg capsule 0.4 mg PO DAILY 03/29/25 testosterone 2 pump topical DAILY 03/29/25 tirzepatide 7.5 mg/0.5 mL subcutaneous pen injector (Mounjaro) 7.5 mg subcut QWEEK 03/29/25 trospium 20 mg tablet 20 mg PO Q12H overactive bladder 03/29/25 oxycodone 15 mg tablet 15 mg PO DAILY PRN pain 3 days #3 tabs 03/31/25 pantoprazole 40 mg tablet,delayed release 40 mg PO DAILY 30 days #30 tabs 03/31/25 Physical Exam Narrative Seen and examined. Patient has chronic back pain on long-term oxycodone. I talked to patient 5 regarding pain medication and patient and both are adamant on only 15 mg oxycodone. Physical exam General: Alert, Oriented x3, Cooperative HEENT: Atraumatic, PERRLA, EOMI, Normocephalic. Oral: No Gingival or Mucosal Lesions/ Ulcerations Neck: Supple, No JVD, Negative Carotid Bruits Chest wall/Lungs: Air entry diminished in bilateral lung bases. No crepitation/rhonchi Cardiovascular: Regular rate and rhythm, Normal S1,S2, systolic murmur Abdomen: Bowel Sounds Present, Soft, Non Tender, Non-Distended : No dysuria. No renal angle tenderness. No suprapubic tenderness. Extremities: No edema, Capillary Refill Less than 3 Seconds Skin: No rashes, No breakdown Musculoskeletal: No Tenderness to Palpation of Joints or Extremities. Mild chronic lower extremity weakness, ambulates with cane and is disequilibrium Spine: Tenderness over lumbar spine. Sciatica type pain Neurological: Cranial nerves II-XII grossly intact, DTR 2+/4. No acute focal neurological deficit. Psych/Mental Status: Normal Affect, Appropriate. Weight / BMI Weight Weight: 322 lb 12.108 oz Body Mass Index (BMI) 37.3 ABG / Lab / Microbiology Data 03/29/25 12:37 03/29/25 12:37 D/C Instructions DC O2, CPAP, BIPAP Needs Home O2 Discharge instructions: No Meaningful Use Info Meaningful Use Meaningful Use Diagnoses (Choose all that apply): None applicable Discharge Plan Admission Admit Date/Time: 03/29/25 15:07 Primary Reason for Your Visit: Intractable low back pain Attending Provider: Jorge Amador Primary Care Provider: Vivian Brady Consulting Providers: Abimbola Pascual; Orville Birmingham Discharge Orders/Prescriptions Prescriptions: New pantoprazole 40 mg Tablet,Delayed Release (Dr/Ec) 40 mg PO DAILY 30 Days Qty: 30 0RF oxycodone 15 mg tablet 15 mg PO DAILY PRN (Reason: pain) 3 Days Qty: 3 0RF Rx Instructions: Hold for sedation Continued atorvastatin 10 mg tablet 10 mg PO DAILY meloxicam 15 mg tablet 15 mg PO DAILY lorazepam 0.5 mg tablet 0.25 mg PO BID Patient Comments: rx instructions are 1/2t bid, pt states he takes 1am and 2pm tamsulosin 0.4 mg capsule 0.4 mg PO DAILY hydrochlorothiazide 25 mg tablet 25 mg PO DAILY ergocalciferol (vitamin D2) 1,250 mcg (50,000 unit) capsule 2,500 mcg PO QWEEK losartan 100 mg tablet 100 mg PO DAILY risperidone 1 mg tablet 1 mg PO QHS atenolol 50 mg tablet 50 mg PO BID duloxetine 60 mg capsule,delayed release(DR/EC) 60 mg PO BID testosterone 20.25 mg/1.25 gram (1.62 %) gel in metered-dose pump 2 pump topical DAILY Mounjaro 7.5 mg/0.5 mL pen injector 7.5 mg subcut QWEEK trospium 20 mg tablet 20 mg PO Q12H allopurinol 300 mg tablet 300 mg PO DAILY albuterol sulfate [Ventolin HFA] 90 mcg/actuation HFA aerosol inhaler 2 inh inhalation Q8H PRN (Reason: shortness of breath or wheezing) Discontinued oxycodone 15 mg tablet 15 mg PO DAILY Rx Instructions: pt states isn't taking because pcp isn't giving him any more Referrals / Follow Up: Abimbola Pascual MD [Med Staff - Active Staff] - Within 1 Week Vivian Brady DO [Primary Care Provider] - Within 2 Weeks Disposition Disposition (needs filled in before D/C Order can be placed): [facility] Charges/Coding Visit Charges Inpatient E&M: 08525 Disch Hosp >30min
--- NOTE | 2025-03-31 09:20 | CASEMGMT ---
Addendum entered by Maya Carrera 03/31/25 16:04: Pt nurse brought pt rx to RN CM and states pt wants pain meds increased. RNCM notified hospitalist and had phone conversation with hospitalist. Pain meds to stay as written. RN CM into pt room, pt and given explanation that the pain meds rx will remain as ordered. Pt and pt became very irate and reporting that they are going to have a lawsuit against the hospital. Pt is aware that once he is at the facility, the facility physician may change any medications. Pt states he wants to speak to patient advocate and he is not leaving until. Pt and continued to speak negatively of physicians in the facility. Updated charge nurse of pt request. Addendum entered by Maya Carrera 03/31/25 13:58: Per hospitalist, ok for to transport pt to [facility]. Addendum entered by Maya Carrera 03/31/25 10:03: Completed PASSR and printed and given to dc restaurant assistant with completed transport sheet for final dc plans. DC Plan: [facility] under skilled level of care Original Note: RN CM into pt room, pt lying in bed in no distress. Pt aware that he has been accepted by [facility] and precert has been obtained. Pt states he would prefer that transportation be set up instead of his taking him to SNF as it is hard on his . Pt again states he has an appt on Saturday. He is aware that this was passed on to the SNF. Pt denies having a manager of case through mental health. Pt does see a psychiatrist. Pt denies any psychiatric hospitalization in the last 2 years. Pt states his is sleeping and he will notify her around 11 of SNF acceptance. He denies need for RN CM to notify her at this time. Pt denies any questions at this time.
[2025-03-31] MEDS: MENTHOL 226.8 GM JAR 1 APPLIC TOPICAL (10:12)
--- NOTE | 2025-03-31 10:29 | PHA.DC.MR.R ---
Pharmacy MA Med Reconciliation Pharmacy Service has performed discharge medication reconciliation for this patient. The patient's discharge medication list was reviewed for discrepancies and discrepancies were resolved. Medications at Discharge Home Medications albuterol sulfate 90 mcg/actuation aerosol inhaler (Ventolin HFA) 2 inh inhalation Q8H PRN shortness of breath or wheezing 03/29/25 allopurinol 300 mg tablet 300 mg PO DAILY gout pain 03/29/25 atenolol 50 mg tablet 50 mg PO BID 03/29/25 atorvastatin 10 mg tablet 10 mg PO DAILY 03/29/25 duloxetine 60 mg capsule,delayed release 60 mg PO BID 03/29/25 ergocalciferol (vitamin D2) 1,250 mcg (50,000 unit) capsule 2,500 mcg PO QWEEK 03/29/25 hydrochlorothiazide 25 mg tablet 25 mg PO DAILY 03/29/25 lorazepam 0.5 mg tablet 0.25 mg PO BID anxiety 03/29/25 losartan 100 mg tablet 100 mg PO DAILY 03/29/25 meloxicam 15 mg tablet 15 mg PO DAILY 03/29/25 risperidone 1 mg tablet 1 mg PO QHS 03/29/25 tamsulosin 0.4 mg capsule 0.4 mg PO DAILY 03/29/25 testosterone 2 pump topical DAILY 03/29/25 tirzepatide 7.5 mg/0.5 mL subcutaneous pen injector (Mounjaro) 7.5 mg subcut QWEEK 03/29/25 trospium 20 mg tablet 20 mg PO Q12H overactive bladder 03/29/25 oxycodone 5 mg tablet 5 mg PO Q6H PRN PRN Pain Score 6-10 3 days #7 tabs 03/31/25 pantoprazole 40 mg tablet,delayed release 40 mg PO DAILY 30 days #30 tabs 03/31/25
[2025-03-31 11:00] VITALS: RESP 18
--- NOTE | 2025-03-31 11:17 | NURSING ---
received phone call from patient's requesting to be including in rounding with Dr. Amador and patient via speaker call. Dr. Amador notified and enabled patient's to do this. Noted patient and his verbalized discontent that Dr. Pascaul had changed pt's pain medication dosing. Pt and made threats of legal action against Dr. Pascual and demanded that dosing of pain medication increased to 15mg oxyir. Dr. Amador noted to explain consultations and pain management to determine pain med dosing and did discuss patient being discharged to f where their physician would control pain medication.
--- NOTE | 2025-03-31 11:32 | CASEMGMT ---
Discharge Planning Call rec'd by pts (Jason) regarding requirement for up-front transport payment. Initially, this food writer believed the reason for concern was his comfort so it was explained that the unit that services this area only has a cot, and it was just a matter of correctly billing his insurance. Jason believes that pt is eligible for cot transport d/t his back issues and was told by Physicians that cot transport is covered by [facility] and wheelchair was not. Multiple attempts were made to explain to pts that he doesn't meet mcr criteria for cot transport and that if I changed to cot, she would then potentially be billed for a cot transport that would cost significantly more if insurance deemed unnecessary. Pts was unwilling to accept any parts of my explanations, becoming verbally aggressive as the call went on before telling this food writer to do you job and hanging up. Call placed to Physicians to change transport to cot. Because of change, this triggered their system requiring a call be made to pts to explain differences in cost for wheelchair and cot. Requested that Physicians make this call. At this time, transport has not been scheduled d/t need for payment. MERVAT CM updated. Melly Ren DC Planning Asst.
[2025-03-31 11:55] VITALS: BP 107/60; PULSE 76; RESP 18; TEMP 36.7; O2SAT 98
--- NOTE | 2025-03-31 11:57 | NURSING ---
Pt states that he is having chest pain and more distinctive in his mitral valve prolpase. Pt states he has had this issue before an he takes 3 ativan in the past and it helps. Pt states that all this talk about pain medication is getting him worked up. Stat ekg ordered and Dr.Chang aburto.
--- NOTE | 2025-03-31 12:01 | NURSING ---
received phone call from pt's . Jason stating she was told by Melly from / that she would enter the codes for patient to discharge via cot but she was called by the ambulance services and they states he's going via wheelchair. states that he can not sit in a wheelchair for the extended time. Explained to that it is my understanding that there are medical requirements as to which was way transportation is arranged and that since they don't have a wheelchair available pt would physically transported via cot. Deescalation techniques utilized as was agitated. Stating she was not paying for a wheelchair and that it was all about money. Patient's reeducated that I was not infact Melly's boss and was not the appropriate person to discuss her concerns with regarding how insurance would approve patient being transported. patient's agreeable to being placed on a brief hold while I contacted the appropriate person for her. Discussed above with Dominga Gaitan, manager audio, Maya Beckham and Melly. Jason's call was transferred to [facility] case management.
--- NOTE | 2025-03-31 14:11 | CASEMGMT ---
Discharge Planning Discharge orders, signed med list, narc script, and [facility] P[facility] will [facility]. Nursing and RN CM updated. Melly Ren DC Planning Asst.
[2025-03-31 14:44] VITALS: BP 110/67; PULSE 80; RESP 18; TEMP 36.6; O2SAT 97
--- NOTE | 2025-03-31 16:00 | NURSING ---
talked with Maya, aware she talked with Dr. Amador regarding pt/'s upset regarding Oxyir 15mg daily order. aware Maya has also talked with pt and pt's regarding Dr. Amador's- [facility] physician can change order to whatever they feel appropriate at their facility but not changing at this time. Aware requesting to speak to advocate and states not leaving until it is changed. Security called Pt's advocate Temitope called requesting her assistance. States she will come over to see patient.
--- NOTE | 2025-03-31 16:07 | NURSING ---
Dominga Yuan Separator Inserter updated.
--- NOTE | 2025-03-31 16:32 | NURSING ---
assisted patient advocate roseann with Dr. Amador. Aware per Dr. Amador he prescribed the same dose frequency patient was prescribed to take at home as verbalized the 15mg was necessary for patient to function. Aware advocate to discuss with /patient.
--- NOTE | 2025-03-31 16:53 | NURSING ---
talked with Dr. Amador after talking to patient advocaate. aware Dr. Amador will send us a new med list with same dose and frequency as pt receiving here instead of the 15mg daily.
--- NOTE | 2025-03-31 17:12 | CASEMGMT ---
Social Work- SW sent updated med list and scripts via [employer]. Charge nurse reports that she copied to place in chart. JASIEL Pretty
--- NOTE | 2025-03-31 17:13 | NURSING ---
new med list and script faxed to [facility], copy on chart. old med list and script discharged at Dr. Amador's request. pt/ has updated packet for [facility]. Pt to press call light within he is done eating and ready to leave. no further needs verbalized.
== END 2025-03-31 17:49 | disposition skilled nursing facility (03) ==
LOC: ED 15:41 → MS3 16:38
PROVIDERS: Admitting Provider Hospitalist; Emergency Provider Emergency Medicine; PCP Internal Medicine; Visit Provider Internal Medicine
DX: G89.29 Other chronic pain (principal); F11.20 Opioid dependence, uncomplicated; Z68.37 Body mass index [BMI] 37.0-37.9, adult; F32.A Depression, unspecified; N32.81 Overactive bladder; E66.812 Obesity, class 2; F41.9 Anxiety disorder, unspecified; E78.5 Hyperlipidemia, unspecified; I10 Essential (primary) hypertension; N40.1 Benign prostatic hyperplasia with lower urinary tract symptoms; N13.8 Other obstructive and reflux uropathy; Z79.899 Other long term (current) drug therapy; Z79.85 Long-term (current) use of injectable non-insulin antidiabetic drugs; M96.1 Postlaminectomy syndrome, not elsewhere classified; M47.816 Spondylosis without myelopathy or radiculopathy, lumbar region
CPT/HCPCS: 71045; 80053; 80307; 81001; 82077; 84484; 85025; 93005; 96372; 96374; 97162; 97166; 99221; 99285; A4216; G0378; J2405